=== PATIENT | female | born 1995 | race Hispanic/Latino ===

== ENCOUNTER 2017-04-04 16:48 | Emergency (ER) | payer SELFPAY ==
[~2017-04-04] VITALS: Ht 154.9 cm; Wt 68.7 kg
[~2017-04-04 16:48] MED LIST: ZOVIRAX5 GM TP
[2017-04-04 17:41] LABS: HEMATOCRIT 40.8 % (36.0-46.0); MCH 27.4 PG (29.0-34.0); MCHC 33.3 G/DL (30.0-36.0); MCV 82.1 FL (83-99); MEAN PLAT.VOLUME 9.8 uM^3 (9.5-12.4); PLATELET COUNT 329 K/uL (156-360); RBC DIS.WIDTH-CV 14.7 % (11.8-14.6); RBC DIS.WIDTH-SD 44.1 % (39-53); RED BLOOD COUNT 4.97 M/uL (3.80-5.20)
[2017-04-04 17:50] LABS: CHLORIDE 104 mEq/L (99-109); POTASSIUM 3.7 mEq/L (3.7-5.4); SODIUM 137 mEq/L (136-147)
[2017-04-04 17:53] LABS: GLUCOSE 87 mg/dL (70-99)
[2017-04-04 17:54] LABS: ANION GAP 10 MEQ/L (2-14)
[2017-04-04 17:55] LABS: TOTAL BILIRUBIN 0.4 mg/dL (0.0-1.0)
[2017-04-04 17:56] LABS: ADD MIUA? YES; BILIRUBIN NEGATIVE; BLOOD MODERATE; COLOR YELLOW ((YELLOW)); GLUCOSE (STRIP) NEGATIVE; KETONES 80; LEUKOCYTES LARGE; NITRITE NEGATIVE; PROTEIN (STRIP) 30; UROBILINOGEN 0.2 MG/DL (0.2-1.0)
[2017-04-04 17:56] LABS: ALKALINE PHOSPHATASE 61 IU/L (3-129)
[2017-04-04 17:57] LABS: GFR ESTIMATE (CALCULATED) > 59 mL/min/
[2017-04-04 17:58] LABS: DIRECT BILIRUBIN 0.2 mg/dL (0.0-0.3); UREA NITROGEN (BUN) 6 mg/dL (9-23)
[2017-04-04 18:00] LABS: LIPASE 13 U/L (1.0-51.0)
[2017-04-04 18:08] LABS: BACTERIA NONE SEEN /HPF; EPITHELIAL CELLS 2+ /HPF; MUCUS TRACE /LPF; RED BLOOD CELLS 0-5 /HPF (0-5); UCUL ADDED? NO; WHITE BLOOD CELLS 0-5 /HPF (0-5)
[2017-04-04 18:09] LABS: QUANTITATIVE HCG < 4.0 MIU/ML
[2017-04-04 19:56] VITALS: BP 111/77
[2017-04-06 12:38] LABS: NEISSERIA GONORRHOEAE NEGATIVE
[2017-04-06 12:40] LABS: CHLAMYDIA TRACHOMATIS NEGATIVE
== END 2017-04-04 20:06 | disposition home or self-care (01) ==
LOC: EME 16:48
PROVIDERS: Physician Assistant
DX: A64 Unspecified sexually transmitted disease (principal); Z90.49 Acquired absence of other specified parts of digestive tract; K83.8 Other specified diseases of biliary tract
CPT/HCPCS: 74176; 80048; 80076; 81003; 83690; 84702; 85027; 87210; 87480; 87491; 87510; 87591; 87660; 99281; 99283; J0696